=== PATIENT | male | born 1980 | race Caucasian/White ===

== ENCOUNTER → 2021-02-11 | Outpatient (CLI) | payer BC ==
--- NOTE | 2021-02-11 17:53 | CONS ---
CONSULTATION REASON FOR CONSULTATION: Sleep apnea. HISTORY OF PRESENT ILLNESS: 40-year-old morbidly obese male patient gained significant amount of weight over the years. Works for [employer]. Coming in for concerns of sleep apnea. He has been noted to snore loud, quit breathing and gasps for air in the middle of the night and this has been documented by his . He goes to bed around 10 p.m., wakes up 6:40 am in the morning. Feels drowsy and sleepy and somnolent. Virginia score is 13. In fact, he has snoring and noisy breathing even when he is awake. He has chronic nasal plugging and congestion and he is a mouth breather. Sleeps on his side. Never falls asleep while driving. Never had any motor vehicle accident because of feeling drowsy or sleepy. No dreams. No kicks. No chest pain. No shortness of breath. PAST MEDICAL HISTORY: Obesity, history of DVTs more than 20 years ago, factor 5 Leiden deficiency, obesity. SURGICAL HISTORY: None. DRUG ALLERGIES: None. MEDICATIONS: Includes Coumadin 50 mg once a day, losartan 50 mg p.o. daily. SOCIAL HISTORY: Smoker, 2/3 of pack of cigarettes a day. No history of alcoholism. No history of IV drugs. FAMILY HISTORY: Father of cardiac disease. Mother is alive. REVIEW OF SYSTEMS: Fourteen-point review of system was done. Positive findings are mentioned in history of present illness. He has gained around 80 pounds over the past 10 years. Occasional naps during the day. No sleep paralysis. No hallucinations. No cataplexy. PHYSICAL EXAMINATION: VITAL SIGNS: BP is 163/90, pulse 94, respirations 18, temperature 97.9. Saturation is 97% on room air. [place] score is 13. BMI 41.7. Neck size is 19-3/4 of an inch. Height is 6 feet, 3 inches, weight is 340. GENERAL APPEARANCE: Obese, calm, comfortable. HEAD is atraumatic, normocephalic. NECK: Supple. No JVD. No goiter. No neck mass. Mallampati class 4. LUNGS: Diminished, otherwise clear. HEART: Heart sounds are regular rate and rhythm. Normal S1/S2. No S3, no S4. No murmurs. ABDOMEN: Soft, nontender. No organomegaly. EXTREMITIES: No edema. No cyanosis or clubbing. NEUROLOGIC: Awake and alert. There is no focal neurological deficits. PSYCHIATRIC: Negative for anxiety or depression. IMPRESSION: 1. Hypersomnia under investigation, [place] score 13. High clinical suspicion for obstructive sleep apnea. 2. Loud snoring. 3. Witnessed apneas. 4. Factor 5 laden with previous history of deep vein thrombosis. Maintained on lifelong anticoagulation with warfarin. 5. Hypertension. 6. Obesity with a BMI of 41.7. PLAN: 1. High suspicion for obstructive sleep apnea. Proceed with a home sleep study. 2. Encourage weight loss. 3. Implement good sleep hygiene measures. 4. We will continue to follow. MMODL / IJN: [id number] /
== END ==
LOC: SLEEP 14:11
PROVIDERS: ATTEND Internal Medicine Critical Care Medicine
DX: R06.81 Apnea, not elsewhere classified (principal); R06.83 Snoring; E66.01 Morbid (severe) obesity due to excess calories; I10 Essential (primary) hypertension; F17.210 Nicotine dependence, cigarettes, uncomplicated; Z68.41 Body mass index [BMI] 40.0-44.9, adult; Z79.01 Long term (current) use of anticoagulants; Z86.718 Personal history of other venous thrombosis and embolism; Z79.899 Other long term (current) drug therapy
CPT/HCPCS: 99202